=== PATIENT | female | born 1970 | race Caucasian/White ===

== ENCOUNTER 2020-10-09 16:50 | Outpatient (CLI) | payer BC | END 2020-10-09 16:51 | disposition home or self-care (01) | LOC: CSHRAD 16:50 | PROVIDERS: ATTEND Family Medicine | DX: M54.6 Pain in thoracic spine (principal) | CPT/HCPCS: 72072 ==

== ENCOUNTER 2022-05-06 01:07 | Emergency (ER) | payer BC ==
[2022-05-06] MEDS ORDERED: Diazepam 10 MG/2 ML SYRINGE ONE (01:58)
[2022-05-06] MEDS ORDERED: Ketorolac Tromethamine 30 MG/ML VIAL ONE (01:59)
[2022-05-06] MEDS ORDERED: Morphine 4 MG/ML VIAL ONE (02:58)
== END 2022-05-06 04:42 | disposition home or self-care (01) ==
LOC: CSHERS 01:07
DX: M54.50 Low back pain, unspecified (principal); E05.90 Thyrotoxicosis, unspecified without thyrotoxic crisis or storm; G43.909 Migraine, unspecified, not intractable, without status migrainosus; Z79.899 Other long term (current) drug therapy
CPT/HCPCS: 96372; 99283; J1885; J2270; J3360